=== PATIENT | male | born 1965 | race Asian ===

== ENCOUNTER 2016-08-10 10:09 | Emergency (ER) | payer OTHER ==
[~2016-08-10] VITALS: Ht 188 cm; Wt 81.6 kg
[2016-08-10 10:37] VITALS: TEMP 98
[2016-08-10 12:45] VITALS: BP 128/88
== END 2016-08-10 13:10 | disposition home or self-care (01) ==
LOC: ED 10:09
DX: J44.1 Chronic obstructive pulmonary disease with (acute) exacerbation (principal); R06.09 Other forms of dyspnea
CPT/HCPCS: 96372; 99283; J1100

== ENCOUNTER 2016-08-15 07:27 | Emergency (ER) | payer OTHER ==
[~2016-08-15] VITALS: Ht 188 cm; Wt 81.6 kg
[2016-08-15 08:50] VITALS: BP 130/78; TEMP 98
== END 2016-08-15 08:50 | disposition home or self-care (01) ==
LOC: ED 07:27
DX: R06.00 Dyspnea, unspecified (principal); J44.1 Chronic obstructive pulmonary disease with (acute) exacerbation
CPT/HCPCS: 93005; 99283

== ENCOUNTER 2016-08-15 14:11 | Emergency (ER) | payer OTHER ==
[~2016-08-15] VITALS: Ht 188 cm; Wt 81.6 kg
[2016-08-15 14:15] VITALS: BP 148/80; TEMP 97.4
== END 2016-08-15 15:32 | disposition home or self-care (01) ==
LOC: ED 14:11
DX: R06.00 Dyspnea, unspecified (principal); J45.901 Unspecified asthma with (acute) exacerbation
CPT/HCPCS: 96374; 99284; J2930

== ENCOUNTER 2016-08-19 18:14 | Observation (INO) | payer OTHER ==
[2016-08-19] VITALS (11 sets, daily range): BP systolic 126–183; BP diastolic 78–123; TEMP 97.6–97.7; Ht 188 cm; Wt 72.6 kg
[~2016-08-19] VITALS: Ht 188 cm; Wt 72.6 kg
--- NOTE | 2016-08-19 21:50 | NUR ---
PATIENT ARRIVED TO UNIT BY WHEELCHAIR. PATIENT ALERT AND OX4. IV 18 GA RIGHT AC, NS TKO. PATIENT WAS ORIENTED TO UNIT AND GIVEN A GOWN AND SOCKS, VENDING MACHINE ATTENDANT WITH NIBP, PULSE OX, BED IN LOW POSITION, TWO SIDERAILS UP. NO ACUTE DISTRESS NOTED.
--- NOTE | 2016-08-19 22:15 | NUR ---
PATIENT ASKED FOR SOMETHING TO EAT AND DRINK. PATIENT WAS GIVEN SPRITE AND SOUP.
--- NOTE | 2016-08-19 22:30 | NUR ---
PATIENT STILL WANTS SOMETHING ELSE TO EAT. PATIENT WAS GIVEN CEREAL AND MILK WELL GOLDFISH CRACKERS.
[2016-08-20] VITALS (14 sets, daily range): BP systolic 120–159; BP diastolic 79–99; TEMP 97.8–98.3
--- NOTE | 2016-08-20 01:00 | NUR ---
PATIENT WATCHING TV WITHOUT COMPLAINTS. WILL CONTINUE TO MONITOR.
--- NOTE | 2016-08-20 05:45 | NUR ---
AT PATIENT BEDSIDE FOR LAB DRAW. PATIENT AWAKE AND ALERT. NO COMPLAINTS. NO ACUTE DISTRESS NOTED.
[2016-08-20 06:45] LABS: PLATELET COUNT 228 K/uL (142-355)
[2016-08-20 07:00] LABS: POTASSIUM 3.9 mmol/L (3.6-5.2); SODIUM 136 mmol/L (136-145)
--- NOTE | 2016-08-20 08:25 | NUR ---
PT ABLE TO AMBULATE TO RESTROOM.
[2016-08-20] MEDS ORDERED: ALBU90AE13 INH (10:11)
--- NOTE | 2016-08-20 10:21 | NUR ---
PT IN RESTROOM.
--- NOTE | 2016-08-20 11:20 | NUR ---
DR TERRY AT BS
--- NOTE | 2016-08-20 23:00 | NUR ---
PATIENT COMPLAINING OF THE PAINT FUMES IN HIS ROOM. SINCE PATIENT IS POSSIBLY BEING DISCHARGED IN THE MORNING, HE IS AGREEABLE TO STAY IN PRESENT ROOM. HE ALSO WAS AKING ABOUT HIS SYMBICORT BEING ORDERED. I EXPLAINED TO HIM THAT IT WASN'T ORDERED AND THAT WE WOULD BE UNABLE TO GET IT TONIGHT. HE VOICED UNDERSTANDING. I TOLD HIM THAT IF HE WASN'T DISCHARGED WE WOULD SEE ABOUT MOVING HIM TO ANOTHER ROOM AND HIS SYMBICORT. WILL DISCUSS WITH ONCOMING NURSE.
[2016-08-21 00:30] VITALS: BP 139/89; TEMP 98.5
[2016-08-21 04:58] VITALS: BP 144/87; TEMP 98.4
[2016-08-21 08:00] VITALS: BP 132/95; TEMP 97.8
[2016-08-21 11:54] VITALS: BP 108/83; TEMP 97.6
--- NOTE | 2016-08-21 14:45 | NUR ---
IV D/C'd. NO REDNESS OR EDEMA OBSERVED. DISCHARGE INSTRUCTIONS SIGNED AND GIVEN. Pt. EXIT OUT OF FRONT ENTRANCE AMBULATING.
== END 2016-08-21 14:45 | disposition home or self-care (01) ==
LOC: ED 18:14 → ICU 20:57 → MED/SURG 08-20 15:23
PROVIDERS: Emergency Medicine; ADMIT Specialist
DX: J44.1 Chronic obstructive pulmonary disease with (acute) exacerbation (principal); F14.10 Cocaine abuse, uncomplicated; F12.10 Cannabis abuse, uncomplicated; Z72.0 Tobacco use; F10.10 Alcohol abuse, uncomplicated
CPT/HCPCS: 36415; 36600; 80053; 80307; 82805; 83735; 85027; 87070; 87205; 94640; 94664; 94760; 96374; 96375; 99220; 99285; G0378; G0479; J1200; J2930

== ENCOUNTER 2016-10-05 03:09 | Emergency (ER) | payer OTHER ==
[~2016-10-05] VITALS: Ht 188 cm; Wt 85.7 kg
[~2016-10-05 03:09] MED LIST: ALBU90AE13 INH
[2016-10-05 03:43] LABS: PLATELET COUNT 244 K/uL (142-355)
[2016-10-05 03:52] LABS: POTASSIUM 3.5 mmol/L (3.6-5.2); SODIUM 137 mmol/L (136-145)
[2016-10-05 04:39] VITALS: BP 162/77; TEMP 98.3
== END 2016-10-05 04:55 | disposition home or self-care (01) ==
LOC: ED 03:09
DX: R06.00 Dyspnea, unspecified (principal)
CPT/HCPCS: 36415; 80053; 85027; 93005; 94640; 94664; 94760; 96374; 99284; J2930

== ENCOUNTER 2016-10-11 09:23 | Emergency (ER) | payer OTHER ==
[~2016-10-11] VITALS: Ht 188 cm; Wt 81.6 kg
[2016-10-11 09:30] VITALS: BP 158/106; TEMP 97.9
[2016-10-11 10:09] LABS: PLATELET COUNT 261 K/uL (142-355)
== END 2016-10-11 10:45 | disposition home or self-care (01) ==
LOC: ED 09:23
DX: J20.9 Acute bronchitis, unspecified (principal)
CPT/HCPCS: 36415; 85027; 96374; 99284; J2930

== ENCOUNTER 2017-01-18 20:19 | Emergency (ER) | payer OTHER ==
[~2017-01-18] VITALS: Ht 188 cm; Wt 81.6 kg
[2017-01-18 21:12] VITALS: BP 148/75; TEMP 98.4
== END 2017-01-18 21:18 | disposition home or self-care (01) ==
LOC: ED 20:19
DX: N34.2 Other urethritis (principal)
CPT/HCPCS: 87491; 87591; 96372; 99283; J0696

== ENCOUNTER 2020-02-24 09:54 | Outpatient (CLI) | payer OTHER | END 2020-02-24 21:26 | disposition home or self-care (01) | LOC: RAD 09:54 | PROVIDERS: ATTEND Internal Medicine | DX: J44.9 Chronic obstructive pulmonary disease, unspecified (principal); M25.512 Pain in left shoulder; M25.521 Pain in right elbow ==

== ENCOUNTER 2021-02-19 06:55 | Emergency (ER) | payer OTHER ==
[~2021-02-19] VITALS: Ht 188 cm; Wt 86.2 kg
[2021-02-19 07:02] VITALS: BP 169/99; TEMP 97.8
== END 2021-02-19 07:33 | disposition home or self-care (01) ==
LOC: ED 06:55
PROC: 09C47ZZ Extirpation of Matter from Left External Auditory Canal, Via Natural or Artificial Opening (ICD-10-PCS; principal; 2021-02-19)
DX: T16.2XXA Foreign body in left ear, initial encounter (principal); X58.XXXA Exposure to other specified factors, initial encounter; Y92.89 Other specified places as the place of occurrence of the external cause
CPT/HCPCS: 99283

== ENCOUNTER 2021-05-01 03:15 | Emergency (ER) | payer OTHER ==
[~2021-05-01] VITALS: Ht 188 cm; Wt 86.2 kg
[2021-05-01 03:41] LABS: PLATELET COUNT 266 K/uL (142-355)
[2021-05-01 04:35] VITALS: BP 156/91; TEMP 97.9
== END 2021-05-01 04:35 | disposition home or self-care (01) ==
LOC: ED 03:15
PROVIDERS: Hospitalist
DX: J44.1 Chronic obstructive pulmonary disease with (acute) exacerbation (principal); J11.1 Influenza due to unidentified influenza virus with other respiratory manifestations; Z20.822 Contact with and (suspected) exposure to COVID-19; F17.210 Nicotine dependence, cigarettes, uncomplicated
CPT/HCPCS: 36415; 80053; 85027; 87502; 87635; 87651; 94664; 96374; 99284; J2930; U0003

== ENCOUNTER 2021-10-04 06:33 | Emergency (ER) | payer OTHER ==
[~2021-10-04] VITALS: Ht 188 cm; Wt 81.6 kg
[2021-10-04 06:33] VITALS: BP 171/97; TEMP 98
[2021-10-04 07:02] LABS: PLATELET COUNT 251 K/uL (142-355)
[2021-10-04 07:12] LABS: POTASSIUM 3.8 mmol/L (3.6-5.2)
[2021-10-04 07:21] LABS: PARTIAL THROMBOPLASTIN TIME 26.4 SECONDS (24.5-33.6)
== END 2021-10-04 09:05 | disposition home or self-care (01) ==
LOC: ED 06:33
PROVIDERS: Hospitalist
DX: M47.896 Other spondylosis, lumbar region (principal)
CPT/HCPCS: 80048; 80320; 85027; 85610; 85730; 96374; 96375; 99284; J1885; J2405; J2930

== ENCOUNTER 2021-10-05 20:52 | Emergency (ER) | payer OTHER ==
[~2021-10-05] VITALS: Ht 188 cm; Wt 81.6 kg
[2021-10-05 21:00] VITALS: BP 147/87; TEMP 98
== END 2021-10-05 22:04 | disposition home or self-care (01) ==
LOC: ED 20:52
DX: M54.59 Other low back pain (principal); G89.29 Other chronic pain
CPT/HCPCS: 96372; 99283; J1885; J2360

== ENCOUNTER 2021-10-22 08:58 | Emergency (ER) | payer OTHER ==
[~2021-10-22] VITALS: Ht 188 cm; Wt 81.6 kg
[2021-10-22 09:12] VITALS: TEMP 97
[2021-10-22 10:41] VITALS: BP 142/78
== END 2021-10-22 10:42 | disposition home or self-care (01) ==
LOC: ED 08:58
DX: J44.1 Chronic obstructive pulmonary disease with (acute) exacerbation (principal); F17.210 Nicotine dependence, cigarettes, uncomplicated
CPT/HCPCS: 36415; 94664; 96374; 99284; J2930

== ENCOUNTER 2021-11-02 04:29 | Inpatient (IN) | payer OTHER ==
[~2021-11-02] VITALS: Ht 188 cm; Wt 74.2 kg
[2021-11-02] VITALS (11 sets, daily range): BP systolic 111–176; BP diastolic 65–116; TEMP 97.5–98.9
[2021-11-02 05:17] LABS: PLATELET COUNT 276 K/uL (142-355)
[2021-11-02 05:27] LABS: POTASSIUM 3.2 mmol/L (3.6-5.2)
[2021-11-02] MEDS ORDERED: LEVOFLOXACIN500 MG PO (13:49)
[2021-11-02] MEDS ORDERED: PRED20TA27 PO (13:50)
[2021-11-02] MEDS ORDERED: ALBUTEROL0.083 % INH (13:51)
[2021-11-03] VITALS (7 sets, daily range): BP systolic 154–177; BP diastolic 84–98; TEMP 97.7–98.5
[2021-11-03 05:47] LABS: PLATELET COUNT 306 K/uL (142-355)
[2021-11-04] VITALS: BP 173/84; TEMP 98.4
[2021-11-04 04:00] VITALS: BP 160/92; TEMP 98.4
[2021-11-04 08:00] VITALS: BP 176/104; TEMP 98.2
[2021-11-04 12:00] VITALS: BP 153/96; TEMP 98
[2021-11-04] MEDS ORDERED: BENZONATATE100 MG PO (14:33)
[2021-11-04] MEDS ORDERED: IPRATROPIUM/ INH (14:34)
[2021-11-04] MEDS ORDERED: LISI20TA11 PO (14:35)
[2021-11-04] MEDS ORDERED: PRED10TA27 PO (14:36)
[2021-11-04] MEDS ORDERED: AZIT250T3 PO (14:36)
== END 2021-11-04 16:15 | disposition home or self-care (01) | DRG 192 ==
LOC: ED 04:29 → MED/SURG 06:00
PROVIDERS: ADMIT Emergency Medicine Emergency Medical Services; ATTEND Internal Medicine
DX: J44.1 Chronic obstructive pulmonary disease with (acute) exacerbation (principal); E87.6 Hypokalemia; I10 Essential (primary) hypertension
CPT/HCPCS: 36415; 36600; 80053; 82805; 83605; 83735; 84484; 85027; 87040; 87502; 87635; 93005; 94664; 94760; 96360; 96361; 96365; 96367; 96375; 96376; 99284; J0360; J0456; J0696; J1956; J2930; J7040; U0003

== ENCOUNTER 2021-11-19 08:54 | Observation (INO) | payer OTHER ==
[~2021-11-19] VITALS: Ht 188 cm; Wt 70.5 kg
[2021-11-19 08:54] VITALS: BP 112/85; TEMP 97.9
[~2021-11-19 08:54] MED LIST changes: +ALBUTEROL0.083 % INH; +AZIT250T3 PO; +BENZONATATE100 MG PO; +IPRATROPIUM/ INH; +LEVOFLOXACIN500 MG PO; +LISI20TA11 PO; +PRED10TA27 PO; +PRED20TA27 PO
[2021-11-19 09:10] LABS: PLATELET COUNT 254 K/uL (142-355)
[2021-11-19 09:40] VITALS: BP 125/88
[2021-11-19 10:08] VITALS: BP 128/84
[2021-11-19 10:08] LABS: POTASSIUM 4.3 mmol/L (3.6-5.2)
[2021-11-19 10:13] LABS: PARTIAL THROMBOPLASTIN TIME 31.2 SECONDS (24.5-33.6)
[2021-11-19 15:07] VITALS: BP 115/73; TEMP 98.2; Ht 188 cm; Wt 70.5 kg
--- NOTE | 2021-11-19 15:19 | NUR ---
PT WAS ADMITTED FROM ER WITH DX PNEUMONIA. PT HAS COMPLAINTS OF LEFT CHEST PAIN BUT ONLY WHEN MOVING. PT DEINED PAIN WHEN ASKED UPON ARRIVAL. PT'S IV IS 20 G IN LEFT FOREARM. NO SIGNS OF SWELLING OR REDNESS. PT WILL START NS @100 ML/HR. PT RESTING WITH CALL LIGHT IN REACH. BED IN LOWEST POSITION AND BEDRAOLS X2 IN PLACE.
[2021-11-19 16:00] VITALS: BP 110/69; TEMP 98.7
--- NOTE | 2021-11-19 18:15 | NUR ---
PT IS RESTING IN BED WITH NS RUNNING @100 MLS/HR. NO S/S OF PAIN/DISCOMFORT. CALL LIGHT WITHIN REACH.
[2021-11-19 20:00] VITALS: BP 126/80; TEMP 100.8
[2021-11-20] VITALS: BP 137/81; TEMP 98.4
[2021-11-20 04:00] VITALS: BP 139/89; TEMP 98.4
[2021-11-20 04:38] LABS: PLATELET COUNT 246 K/uL (142-355)
[2021-11-20 04:50] LABS: POTASSIUM 3.7 mmol/L (3.6-5.2)
--- NOTE | 2021-11-20 05:00 | NUR ---
PATIENT WAS GIVEN CEREAL WITH MILK PER HIS REQUEST.
[2021-11-20 08:19] VITALS: BP 122/76; TEMP 98
--- NOTE | 2021-11-20 08:24 | NUR ---
PT WAS RESTING IN BED. NO S/S OF PAIN/DISCOMFORT. PT STATED THEY AREN'T IN PAIN AT THIS TIME. NO REDNESS OR SWELLING AT IV SITE. PT'S LUNGS SOUNDED CLEAR ON THE RIGHT SIDE BUT LOWER LEFT HAD A FINE CRACKLE SOUND. CALL LIGHT WITHIN REACH. WILL CONTINUE TO MONITOR.
--- NOTE | 2021-11-20 09:00 | NUR ---
PT WAS ROCEPHIN 50 MLS @ 100MLS/HR RUNNING. PT RESTING WITH NO S/S OF PAIN OR DISCOMFORT. CALL LIGHT WITHIN REACH. WILL CONTINUE TO MONITOR.
--- NOTE | 2021-11-20 10:00 | NUR ---
PT TOLERATED THE ROCEPHIN WELL. THE PT HAS AZITHROMUCIN 250 MLS @ 100 MLS/HR RUNNING. PT IS RESTING WITH NO S/S OF PAIN/DISCOMFORT. CALL LIGHT WITHIN REACH. WILL CONTINUE TO MONITOR.
--- NOTE | 2021-11-20 11:19 | NUR ---
PT IS WATCHING TV IN BED. PT HAS NO S/S OF PAIN/DISCOMFORT. PT HASN'T STATED HAVING ANY PAIN SO FAR TODAY. CALL LIGHT WITHIN REACH. WILL CONTINUE TO MONITOR.
[2021-11-20 12:00] VITALS: BP 112/65; TEMP 98.6
--- NOTE | 2021-11-20 12:47 | NUR ---
PT IS RESTING IN BED. NO S/S OF PAIN/DISCOMFORT. PT STATES THEY 'FEEL A BIT BETTER'. CALL LIGHT WITHIN REACH. WILL CONTINUE TO MONITOR.
--- NOTE | 2021-11-20 14:49 | NUR ---
PT IS RESTING IN BED. NO S/S OF PAIN/DISCOMFORT. CALL LIGHT WITHIN REACH. WILL CONTINUE TO MONITOR.
[2021-11-20 16:00] VITALS: BP 131/86; TEMP 98.6
--- NOTE | 2021-11-20 17:07 | NUR ---
PT WAS WATCHING TV WITH NO S/S OF PAIN/DISCOMFORT. PT COUGHS WHEN MOVING AROUND. YESTERDAYS NICOTINE PATCH REMOVED FROM LEFT SHOLDER AND NEW NICOTINE PATCH PLACED ON RIGHT SHOLDER. NS RUNNING AT 100 MLS/HR. CALL LIGHT WITHIN REACH. WILL CONTINUE TO MONITOR.
--- NOTE | 2021-11-20 18:01 | NUR ---
PT IS RESTING WITH NO S/S OF PAIN/DISCOMFORT. IV SITE SHOWS NO SIGNS OF REDNESS OR SWELLING. NS RUNNING @ 100 MLS/HR. CALL LIGHT WITHIN REACH. WILL CONTINUE TO MONITOR.
[2021-11-20 20:00] VITALS: BP 139/80; TEMP 99
[2021-11-21] VITALS: BP 132/79; TEMP 99
--- NOTE | 2021-11-21 01:17 | NUR ---
PT ATE SNACK. ATE 1OO PERCENT OF SANDWICH WITH FRIES. DRANK PO FLUIDS. COUGHING IS LOOSE AND RATTLING. COUGHING DECREASED AFTER MEDICATION GIVEN. PT IS AMBULATORY IN ROOM.
[2021-11-21 04:00] VITALS: BP 136/78; TEMP 98.7
[2021-11-21 05:02] LABS: PLATELET COUNT 264 K/uL (142-355)
[2021-11-21 05:19] LABS: POTASSIUM 3.4 mmol/L (3.6-5.2)
[2021-11-21 08:00] VITALS: BP 139/95; TEMP 98.1
[2021-11-21] MEDS ORDERED: BENZONATATE100 MG PO (10:31)
[2021-11-21] MEDS ORDERED: IPRATROPIUM/ INH (10:39)
[2021-11-21] MEDS ORDERED: MEDROL DOSEPAK4 MG PO (10:40)
[2021-11-21] MEDS ORDERED: AZIT250T3 PO (10:40)
--- NOTE | 2021-11-21 11:15 | NUR ---
PT DISCHARGED HOME PER HCP. IV ABX ADMINISTERED ORDERED PRIOR TO DISCHARGE. PT ED ON CESSATION OF MARIJUANA AND ILLEGAL SUBSTANCES. PT AGREED TO BE COMPLIANT TO MEDICATION TX AND TO STOP SMOKING MARIJUANA R/T HEALTH ISSUES. WRITTEN MATERIAL ALSO GIVEN TO PT AT DISCHARGE. PT VERBALIZED UNDERSTANDING. IV SITE D/C'D TO LEFT AC, WITH NO SWELLING/REDNESS NOTED.
--- NOTE | 2021-11-21 12:43 | NUR ---
PT WANTED TO TAKE A SHOWER PRIOR TO BEING DISCHARGED. AMBULATED OUT OF FACILITY PER PT'S REQUEST AT 1240.
== END 2021-11-21 12:40 | disposition home or self-care (01) ==
LOC: ED 08:54 → MED/SURG 13:11
PROVIDERS: Emergency Medicine; ADMIT Internal Medicine; ATTEND Internal Medicine
DX: J18.8 Other pneumonia, unspecified organism (principal); J44.0 Chronic obstructive pulmonary disease with (acute) lower respiratory infection; F19.10 Other psychoactive substance abuse, uncomplicated; E87.6 Hypokalemia; R79.1 Abnormal coagulation profile
CPT/HCPCS: 36600; 80048; 80053; 80307; 81002; 82805; 83880; 84484; 85027; 85379; 85610; 85730; 87040; 87635; 93005; 94664; 94760; 96360; 96361; 96365; 96366; 96367; 96375; 99220; 99284; G0378; J0456; J0696; J1885; J1956; J2405; Q9963; U0003

== ENCOUNTER 2022-02-01 07:40 | Emergency (ER) | payer OTHER ==
[~2022-02-01] VITALS: Ht 188 cm; Wt 86.2 kg
[~2022-02-01 07:40] MED LIST changes: +MEDROL DOSEPAK4 MG PO
[2022-02-01 07:41] VITALS: TEMP 98.2
[2022-02-01 08:29] LABS: PLATELET COUNT 333 K/uL (142-355)
[2022-02-01 09:07] VITALS: BP 144/91
== END 2022-02-01 09:14 | disposition still patient (30) ==
LOC: ED 07:40
PROVIDERS: Emergency Medicine Emergency Medical Services
DX: J44.1 Chronic obstructive pulmonary disease with (acute) exacerbation (principal); F17.210 Nicotine dependence, cigarettes, uncomplicated
CPT/HCPCS: 36415; 80048; 84484; 85027; 87040; 93005; 94664; 96360; 96365; 96375; 99284; J0696; J2930

== ENCOUNTER 2022-02-21 02:30 | Emergency (ER) | payer OTHER ==
[~2022-02-21] VITALS: Ht 188 cm; Wt 79.4 kg
[2022-02-21 03:09] LABS: PLATELET COUNT 323 K/uL (142-355)
[2022-02-21 03:18] LABS: POTASSIUM 3.8 mmol/L (3.6-5.2)
[2022-02-21 04:50] VITALS: BP 165/92; TEMP 98
== END 2022-02-21 04:50 | disposition home or self-care (01) ==
LOC: ED 02:30
PROVIDERS: Family Medicine
DX: J44.1 Chronic obstructive pulmonary disease with (acute) exacerbation (principal); R05.8 Other specified cough; R06.03 Acute respiratory distress; F17.210 Nicotine dependence, cigarettes, uncomplicated
CPT/HCPCS: 36415; 80053; 80307; 81002; 83880; 84484; 85027; 93005; 94664; 96360; 96374; 99284; J1100; J2930

== ENCOUNTER 2022-03-08 18:50 | Emergency (ER) | payer OTHER ==
[~2022-03-08] VITALS: Ht 188 cm; Wt 77.1 kg
[2022-03-08 18:55] VITALS: TEMP 98.4
[2022-03-08 20:50] VITALS: BP 160/95
== END 2022-03-08 20:50 | disposition home or self-care (01) ==
LOC: ED 18:50
DX: J44.1 Chronic obstructive pulmonary disease with (acute) exacerbation (principal)
CPT/HCPCS: 94664; 96372; 99283; J2920

== ENCOUNTER 2022-04-01 06:50 | Emergency (ER) | payer OTHER ==
[~2022-04-01] VITALS: Ht 188 cm; Wt 77.1 kg
[2022-04-01 07:22] LABS: PLATELET COUNT 241 K/uL (142-355)
[2022-04-01 07:28] LABS: POTASSIUM 4.5 mmol/L (3.6-5.2)
[2022-04-01 09:00] VITALS: BP 157/97; TEMP 97.8
== END 2022-04-01 09:00 | disposition home or self-care (01) ==
LOC: ED 06:50
PROVIDERS: Emergency Medicine
DX: J44.1 Chronic obstructive pulmonary disease with (acute) exacerbation (principal); R03.0 Elevated blood-pressure reading, without diagnosis of hypertension; F17.210 Nicotine dependence, cigarettes, uncomplicated
CPT/HCPCS: 36415; 80053; 84484; 85027; 93005; 94664; 96374; 99284; J2930

== ENCOUNTER 2022-05-16 16:10 | Outpatient (CLI) | payer OTHER | END 2022-05-16 20:43 | disposition home or self-care (01) | LOC: RAD 16:10 | PROVIDERS: ATTEND Nurse Practitioner Family | DX: M15.0 Primary generalized (osteo)arthritis (principal); M54.2 Cervicalgia; M25.511 Pain in right shoulder; M25.512 Pain in left shoulder; M25.521 Pain in right elbow; M25.531 Pain in right wrist; G56.01 Carpal tunnel syndrome, right upper limb ==